=== PATIENT | female | born 1960 | race Caucasian/White ===

== ENCOUNTER 2016-03-10 02:06 | Observation (INO) | payer SELFPAY ==
[2016-03-10] VITALS (11 sets, daily range): BP systolic 99–158; BP diastolic 54–82; PULSE 67–79; RESP 16–20; TEMP 96.8–98; O2SAT 92–100
[~2016-03-10] VITALS: Ht 167.6 cm; Wt 70.0 kg
[2016-03-10] MEDS ORDERED: ASPIRIN 81 MG CHEW TAB PO ONE (02:45)
[2016-03-10] MEDS ORDERED: SODIUM CHLORIDE 0.9% FLUSH 5 ML FLUSH IVF PRN (02:45)
--- NOTE | 2016-03-10 02:47 | PD ---
HPI Chief Complaint: Chest Pain Time Seen by Provider: 02:35 Travel History International Travel<30 days: No Contact w/Intl Traveler<30days: No Traveled to known affect area: No History of Present Illness HPI 55-year-old female with history of CAD, one cardiac stent placed 2 months ago, one pack per day smoker, brought in by ambulance after having a syncopal episode at a bar while drinking alcohol and arousing with chest pain. Patient describes substernal chest heaviness. Pain is constant, moderate, no modifying factors. No history of DVT or PE. No dyspnea. No cough. The patient does complain of generalized malaise and feeling sick. The patient is from [place] and is here on vacation. She denies daily alcohol use. She denies illicit drug use. PFSH Past Medical History High Cholesterol: Yes Coronary Artery Disease: Yes Diminished Hearing: No Hypertension: Yes Tetanus Vaccination: Unknown Influenza Vaccination: No ?: Not : 1 Para: 1 Social History Alcohol Use: Yes (3 or 4 beers tonight) Tobacco Use: Yes (0.5 ppd) Substance Use: No Allergies-Medications (Allergen,Severity, Reaction): Coded Allergies: Cipro (Verified Allergy, Severe, 03/10/16) "that black box warning with my bones" Reported Meds & Prescriptions Reported Meds & Active Scripts Active Reported Lovastatin 20 Mg Tab 20 Mg PO HS Prozac (Fluoxetine HCl) 20 Mg Cap 20 Mg PO BID Plavix (Clopidogrel Bisulfate) 75 Mg Tab 75 Mg PO DAILY Omeprazole 20 Mg Tab 20 Mg PO DAILY Losartan (Losartan Potassium) 50 Mg Tab 50 Mg PO BID Aspirin 81 Mg Chew 81 Mg CHEW ONCE Review of Systems Except as stated in HPI: all other systems reviewed are Neg Physical Exam Narrative GENERAL: Well-developed, well-nourished, comfortable, no acute distress. SKIN: Warm and dry. HEAD: Atraumatic. Normocephalic. EYES: Pupils equal and round. No scleral icterus. No injection or drainage. ENT: Mucous membranes pink and moist. NECK: Trachea midline. No JVD. CARDIOVASCULAR: Regular rate and rhythm. Distal pulses brisk and equal bilaterally. RESPIRATORY: No accessory muscle use. Clear to auscultation. Breath sounds equal bilaterally. GASTROINTESTINAL: Abdomen soft, non-tender, nondistended. MUSCULOSKELETAL: No obvious deformities. No clubbing. No cyanosis. No edema. NEUROLOGICAL: Awake and alert. No obvious cranial nerve deficits. Motor grossly within normal limits. Normal speech. PSYCHIATRIC: Appropriate mood and affect; insight and judgment normal. Data Data Last Documented VS Vital Signs Date Time Temp Pulse Resp B/P Pulse Ox O2 Delivery O2 Flow Rate FiO2 03/10/16 02:34 96 Nasal Cannula 03/10/16 02:28 97.8 68 16 112/63 Orders Electrocardiogram (03/10/16 02:38) Basic Metabolic Panel (Bmp) (03/10/16 02:38) Ckmb (Isoenzyme) Profile (03/10/16 02:38) Complete Blood Count With Diff (03/10/16 02:38) Magnesium (Mg) (03/10/16 02:38) Prothrombin Time / Inr (Pt) (03/10/16 02:38) Act Partial Throm Time (Ptt) (03/10/16 02:38) Troponin I (03/10/16 02:38) Chest, Single Ap (03/10/16 02:38) Ecg Monitoring (03/10/16 02:38) Iv Access Insert/Monitor (03/10/16 02:38) Oximetry (03/10/16 02:38) Aspirin Chew (Aspirin Chew) (03/10/16 02:45) Sodium Chloride 0.9% Flush (Ns Flush) (03/10/16 02:45) Alcohol (Ethanol) (03/10/16 02:38) Drug Screen, Random Urine (03/10/16 02:38) CKMB (03/10/16 02:45) CKMB% (03/10/16 02:45) Ceftriaxone Inj (Rocephin Inj) (03/10/16 04:15) Azithromycin Inj (Zithromax Inj) (03/10/16 04:15) Labs Laboratory Tests Test 03/10/16 03/10/16 02:45 03:25 White Blood Count 8.6 TH/MM3 Red Blood Count 4.37 MIL/MM3 Hemoglobin 12.7 GM/DL Hematocrit 37.5 % Mean Corpuscular Volume 85.9 FL Mean Corpuscular Hemoglobin 29.1 PG Mean Corpuscular Hemoglobin 33.9 % Concent Red Cell Distribution Width 14.4 % Platelet Count 310 TH/MM3 Mean Platelet Volume 7.7 FL Neutrophils (%) (Auto) 59.5 % Lymphocytes (%) (Auto) 31.6 % Monocytes (%) (Auto) 7.0 % Eosinophils (%) (Auto) 0.4 % Basophils (%) (Auto) 1.5 % Neutrophils # (Auto) 5.1 TH/MM3 Lymphocytes # (Auto) 2.7 TH/MM3 Monocytes # (Auto) 0.6 TH/MM3 Eosinophils # (Auto) 0.0 TH/MM3 Basophils # (Auto) 0.1 TH/MM3 CBC Comment DIFF FINAL Differential Comment Prothrombin Time 10.2 SEC Prothromb Time International 0.9 RATIO Ratio Activated Partial 26.1 SEC Thromboplast Time Sodium Level 144 MEQ/L Potassium Level 4.1 MEQ/L Chloride Level 107 MEQ/L Carbon Dioxide Level 29.5 MEQ/L Anion Gap 8 MEQ/L Blood Urea Nitrogen 12 MG/DL Creatinine 0.74 MG/DL Estimat Glomerular Filtration 82 ML/MIN Rate Random Glucose 97 MG/DL Calcium Level 8.7 MG/DL Magnesium Level 2.5 MG/DL Total Creatine Kinase 293 U/L Creatine Kinase MB 2.3 NG/ML Creatine Kinase MB % 0.8 % Troponin I LESS THAN 0.02 NG/ML Ethyl Alcohol Level 243 MG/DL Urine Opiates Screen NEG Urine Barbiturates Screen NEG Urine Amphetamines Screen NEG Urine Benzodiazepines Screen NEG Urine Cocaine Screen NEG Urine Cannabinoids Screen NEG MDM Medical Decision Making Medical Screen Exam Complete: Yes Emergency Medical Condition: Yes Interpretation(s) EKG: Sinus, rate 68, normal axis, normal intervals, no acute ischemic normality. Differential Diagnosis ACS, pneumothorax, pericarditis, PE, pneumonia, alcohol intoxication Narrative Course Initial vital signs show heart rate 68, blood pressure 112/63, pulse ox 92% on room air, oral temp of 97.8F. CBC is unremarkable. BMP is unremarkable. Cardiac enzymes are negative. Urine drug screen is negative for all drugs tested. Alcohol level is 243. Chest x-ray shows focal right perihilar infiltrate. Recommend follow-up films. Patient complaining of significant substernal chest pressure upon arrival to the emergency department with question possible syncopal episode versus alcohol intoxication. Given significant history of cardiac stent placed 2 months ago as well as findings on chest x-ray for which she was given Rocephin and azithromycin, the patient will be admitted for overnight observation for further cardiac evaluation. Case discussed with hospitalist Dr. Do who will admit the patient to her service. Diagnosis Primary Impression: Chest pain Qualified Code: R07.9 - Chest pain, unspecified type Additional Impressions: Pneumonia Qualified Code: J18.9 - Pneumonia of right lung due to infectious organism, unspecified part of lung Syncope Qualified Code: R55 - Syncope, unspecified syncope type Alcohol intoxication Qualified Code: F10.120 - Alcohol intoxication, uncomplicated Admitting Information Admitting Physician Requests: Carson Martin MD Mar 10, 2016 02:47
[2016-03-10 02:56] LABS: AUTOMATED NEUTROPHIL # 5.1 TH/MM3 (1.8-7.7); BASOPHIL # 0.1 TH/MM3 (0-0.2); BASOPHIL % 1.5 % (0.0-2.0); EOSINOPHIL % 0.4 % (0.0-4.0); HEMATOCRIT 37.5 % (35.0-46.0); HEMO FLAGS DIFF FINAL; LYMPH % 31.6 % (9.0-44.0); LYMPHOCYTE # 2.7 TH/MM3 (1.0-4.8); MEAN CELL VOLUME 85.9 FL (80.0-100.0); MEAN CORPUSCULAR HEMOGLOBIN 29.1 PG (27.0-34.0); MEAN CORPUSCULAR HGB CONC 33.9 % (32.0-36.0); NEUT % 59.5 % (16.0-70.0); PLATELET COUNT 310 TH/MM3 (150-450); RED BLOOD COUNT 4.37 MIL/MM3 (4.00-5.30); RED CELL DISTRIBUTION WIDTH 14.4 % (11.6-17.2); WHITE BLOOD COUNT 8.6 TH/MM3 (4.0-11.0)
[2016-03-10] MEDS ORDERED: ASPI81CH CHEW (02:59)
[2016-03-10] MEDS ORDERED: LOSA50TA PO ×2 (02:59→03:01)
[2016-03-10] MEDS ORDERED: OMEP20TA PO (03:01)
[2016-03-10] MEDS ORDERED: PLAV75TA29 PO (03:01)
[2016-03-10] MEDS ORDERED: PROZ20CA11 PO (03:01)
[2016-03-10] MEDS ORDERED: LOVA20TA PO (03:01)
[2016-03-10 03:11] LABS: APTT (PATIENT) 26.1 SEC (24.3-30.1); INTERNATIONAL NORMALIZED RATIO 0.9 RATIO; PROTHROMBIN TIME - PATIENT 10.2 SEC (9.8-11.6)
--- NOTE | 2016-03-10 03:12 | RADRPT ---
EXAM DATE/TIME: 03/10/2016 02:53 [facility] COMPARISON: No previous studies available for comparison. INDICATIONS : Pt passed out tonight, woke with CP. MEDICAL HISTORY : Hypertension. Hypercholesterolemia. Cardiovascular disease. Coronary artery disease SURGICAL HISTORY : None. ENCOUNTER: Initial ACUITY: 1 day PAIN SCORE: 7/10 LOCATION: Bilateral chest FINDINGS: Frontal view of the chest demonstrates an ill-defined opacity in the right perihilar region possibly representing a focal infiltrate. The left lung is clear. Both hemidiaphragms are well delineated. The heart is normal for an AP film. CONCLUSION: Focal right perihilar infiltrate. Recommend followup films. Dann Donis MD on March 10, 2016 at 3:08 Board Certified Radiologist. This report was verified electronically.
[2016-03-10 03:35] LABS: CREATINE KINASE 293 U/L (26-192)
[2016-03-10 03:47] LABS: CKMB 2.3 NG/ML (0.5-3.6)
[2016-03-10 03:50] LABS: AMPHETAMINE, URINE NEG (NEG); BARBITURATES, URINE NEG (NEG); COCAINE, URINE NEG (NEG)
[2016-03-10 04:05] LABS: ANION GAP 8 MEQ/L (5-15); BICARBONATE 29.5 MEQ/L (21.0-32.0); BLOOD UREA NITROGEN 12 MG/DL (7-18); CHLORIDE 107 MEQ/L (98-107); GLOMERULAR FILTRATION RATE 82 ML/MIN (>89); MAGNESIUM 2.5 MG/DL (1.5-2.5); SODIUM (NA) 144 MEQ/L (136-145)
[2016-03-10 04:06] LABS: POTASSIUM 4.1 MEQ/L (3.5-5.1)
[2016-03-10] MEDS ORDERED: cefTRIAXone INJ 1,000 MG in SODIUM CHLORIDE 0.9% INJ 100 ML IV ONE (04:15)
[2016-03-10] MEDS ORDERED: AZITHROMYCIN INJ 500 MG in SODIUM CHLOR 0.9% 250 ML INJ 250 ML IV ONE (04:15)
[2016-03-10] MEDS ORDERED: RESP: ALBUTEROL 2.5 MG/IPRATROPIUM 0.5 MG NEB (PRN) NEB (04:30)
[2016-03-10] MEDS ORDERED: BISACODYL 10 MG SUPP PR PRN (04:30)
[2016-03-10] MEDS ORDERED: SODIUM CHLORIDE 0.9% FLUSH 5 ML FLUSH FLUSH PRN (04:30)
[2016-03-10] MEDS ORDERED: ONDANSETRON HCL 4 MG/2 ML VIAL IVP PRN (04:30)
[2016-03-10] MEDS ORDERED: ASPIRIN 81 MG CHEW TAB CHEW SCH (04:30)
[2016-03-10] MEDS ORDERED: ACETAMINOPHEN 325 MG TAB PO PRN (04:30)
--- NOTE | 2016-03-10 04:44 | HHI.HP ---
[facility] Primary [facility]ician No Primary Care Physician Admission Diagnosis chest pain, alcohol intoxication, syncope Diagnoses: (1) Syncope Diagnosis: Principal (2) Chest pain Diagnosis: Principal (3) PNA (pneumonia) Diagnosis: Principal (4) Alcohol intoxication Diagnosis: Principal (5) Tobacco abuse Diagnosis: Principal Travel History International Travel<30 Days: No Contact w/Intl Traveler <30 Da: No Traveled to Known Affected Are: No History of Present Illness This is a 55-year-old female with a PMH of HTN, CAD s/p Stent and Tobacco Abuse who was brought to the ER by EMS after apparent syncopal episode. Pt visiting from [place], was out drinking at a bar and had syncopal episode, no reported seizure activity. Pt then complained of substernal chest pain. On arrival, BP 112/63, HR 60, O2 sat 92% on RA, Afebrile. CBC unremarkable. Troponin negative. CPK 293. Urine Drug Screen negative. Alcohol 243. CXR with right perihilar infiltrate. S/p Rocephin/Zithro in ER. Currently chest pain free. Review of Systems Other ROS: 14 point review of systems otherwise negative. Past Family Social History Past Medical History PMH: HTN, CAD s/p Stent and Tobacco Abuse Past Surgical History PAST SURGICAL HISTORY: Neck Surgery, Cardiac Stent Allergies: Coded Allergies: Cipro (Verified Allergy, Severe, 03/10/16) "that black box warning with my bones" Family History PAST FAMILY HISTORY: Reviewed. No h/o DM or CAD Social History PAST SOCIAL HISTORY: Occasional alcohol, had 4-5 beers tonight. Smokes 1/ 2ppd. Negative for drugs. Physical Exam Vital Signs Vital Signs Date Time Temp Pulse Resp B/P Pulse Ox O2 Delivery O2 Flow Rate FiO2 03/10/16 02:34 96 Nasal Cannula 03/10/16 02:28 97.8 68 16 112/63 92 Physical Exam PE: GENERAL: Pleasant middle-aged white female in no acute distress, intoxicated. HEENT: PERRLA, EOMI. No scleral icterus or conjunctival pallor. No lid lag or facial droop. CARDIOVASCULAR: Regular rate and rhythm. No obvious murmurs to auscultation. No chest tenderness to palpation. RESPIRATORY: No obvious rhonchi or wheezing. Clear to auscultation. Breath sounds equal bilaterally. GASTROINTESTINAL: Abdomen soft, non-tender, nondistended. BS normal. MUSCULOSKELETAL: Extremities without clubbing, cyanosis, or edema. No obvious deformities. NEUROLOGICAL: Awake, alert and oriented x4. No focal neurologic deficits. Moving both upper and lower extremities spontaneously. Laboratory Laboratory Tests Test 03/10/16 03/10/16 02:45 03:25 White Blood Count 8.6 Red Blood Count 4.37 Hemoglobin 12.7 Hematocrit 37.5 Mean Corpuscular Volume 85.9 Mean Corpuscular Hemoglobin 29.1 Mean Corpuscular Hemoglobin 33.9 Concent Red Cell Distribution Width 14.4 Platelet Count 310 Mean Platelet Volume 7.7 Neutrophils (%) (Auto) 59.5 Lymphocytes (%) (Auto) 31.6 Monocytes (%) (Auto) 7.0 Eosinophils (%) (Auto) 0.4 Basophils (%) (Auto) 1.5 Neutrophils # (Auto) 5.1 Lymphocytes # (Auto) 2.7 Monocytes # (Auto) 0.6 Eosinophils # (Auto) 0.0 Basophils # (Auto) 0.1 CBC Comment DIFF FINAL Differential Comment Prothrombin Time 10.2 Prothromb Time International 0.9 Ratio Activated Partial 26.1 Thromboplast Time Sodium Level 144 Potassium Level 4.1 Chloride Level 107 Carbon Dioxide Level 29.5 Anion Gap 8 Blood Urea Nitrogen 12 Creatinine 0.74 Estimat Glomerular Filtration 82 Rate Random Glucose 97 Calcium Level 8.7 Magnesium Level 2.5 Total Creatine Kinase 293 Creatine Kinase MB 2.3 Creatine Kinase MB % 0.8 Troponin I LESS THAN 0.02 Ethyl Alcohol Level 243 Urine Opiates Screen NEG Urine Barbiturates Screen NEG Urine Amphetamines Screen NEG Urine Benzodiazepines Screen NEG Urine Cocaine Screen NEG Urine Cannabinoids Screen NEG Result Diagram: 03/10/1624403/10/16244 Assessment and Plan Problem List: (1) Syncope ICD Code: R55 Status: Acute (2) Chest pain ICD Code: R07.9 Status: Acute (3) PNA (pneumonia) ICD Code: J18.9 Status: Acute (4) Alcohol intoxication ICD Code: F10.129 Status: Acute (5) Tobacco abuse ICD Code: Z72.0 Status: Acute Assessment and Plan A/P: 1. Syncope: acute syncopal event while at bar, no seizure activity reported, likely vasovagal. Admit for Observation, place on telemetry, check Echo. CPK 293. IVF for hydration. 2. Chest Pain: h/o CAD s/p stent 2 months ago, compliant w/ medications. R/o ACS, trop negative, EKG w/ no acute changes. Check serial enzymes, resume home Statin, ASA/Plavix. Borderline BP, will hold Cozaar, no B-Agustin. 3. PNA: CXR w/ right perihilar infiltrate, images reviewed by me. Afebrile, no leukocytosis, however reports generalized malaise. S/p Rocephin/Zithro in ER , will continue w/ IV Abx. DuoNeb prn. 4. Tobacco Abuse: Ativan prn if needed. No NicoDerm to avoid vasoconstriction. 5. Alcohol Intoxication: Drank 4-5 beers this evening, not a regular drinker. IVF, Ativan prn. 6. DVT Prophylaxis: SCD/Teds. 7. Social work for d/c planning as needed. 8. Case discussed w/ ER physician at length Problem Qualifiers (1) Syncope: Qualified Code: R55 - Syncope, unspecified syncope type (2) Chest pain: Qualified Code: R07.9 - Chest pain, unspecified type (3) Alcohol intoxication: Qualified Code: F10.120 - Alcohol intoxication, uncomplicated Juliane Do MD Mar 10, 2016 04:44
[2016-03-10] MEDS: SODIUM CHLOR 0.9% 1000 ML INJ 1,000 ML IV SCH ×2 (05:31→14:24)
--- NOTE | 2016-03-10 08:55 | HHI.PR ---
Subjective Remarks Follow-up for chest pain, shortness breath, syncope. Patient seen with SO at bedside. The patient states that she's been having worsening shortness of breath all week. Shortness of breath is worsening or she exerts herself, and is relieved with rest. She has associated dry cough, no fever or chills. She was out last night drinking and having fun, and while she was walking she have syncopal episode and landed on her knee. She states that for the past several weeks she's been having sternal chest discomfort intermittently, lasting approximately 1 minute and being relieved by rest. She states the pain similar to previous MA, CHF and a hiatal hernia and she thought was related to that. She did recently drive down with a friend from [place] for vacation. She states her friend several visits, so she had stopped several times along the way. No history of clotting, no lower extremity swelling. She denies any dizziness or vomiting. Previous hospitalization in September and [place] with LAD stent placement. Currently she feels well at this time. Objective Vitals Vital Signs Date Time Temp Pulse Resp B/P Pulse Ox O2 Delivery O2 Flow Rate FiO2 03/10/16 06:30 68 03/10/16 06:01 96.8 72 20 116/78 98 03/10/16 05:41 70 18 128/63 94 Nasal Cannula 2 03/10/16 04:30 72 18 99/54 100 Nasal Cannula 2 03/10/16 03:30 70 18 101/59 96 Nasal Cannula 2 03/10/16 02:34 96 Nasal Cannula 03/10/16 02:28 97.8 68 16 112/63 92 Result Diagram: 03/10/16 0245 03/10/16 0245 Imaging Last Impressions Chest X-Ray 03/10/16 0238 Signed Impressions: Service Date/Time: Thursday, March 10, 2016 02:53 - CONCLUSION: Focal right perihilar infiltrate. Recommend followup films. Dann Donis MD Objective Remarks GENERAL: Well-developed well-nourished. In no acute distress. SKIN: Warm and dry. Left knee abrasion. HEENT: Normocephalic. Pupils equal and round. Mucous membranes pink and moist. CARDIOVASCULAR: Regular rate and rhythm. No murmur appreciated. RESPIRATORY: No accessory muscle use. Clear to auscultation. Breath sounds equal bilaterally. GASTROINTESTINAL: Abdomen soft, non-tender, nondistended. Bowel sounds x4. MUSCULOSKELETAL: No obvious deformities. No clubbing or cyanosis. No edema. NEUROLOGICAL: Awake and alert. No focal neurological deficits. Moves upper and lower extremities spontaneously. Normal speech. PSYCHIATRIC: Appropriate mood and affect; insight and judgment normal. A/P Problem List: (1) Syncope ICD Code: R55 Status: Acute (2) Chest pain ICD Code: R07.9 Status: Acute (3) PNA (pneumonia) ICD Code: J18.9 Status: Acute (4) Alcohol intoxication ICD Code: F10.129 Status: Acute (5) Tobacco abuse ICD Code: Z72.0 Status: Acute Assessment and Plan 55-year-old female with a PMH of HTN, CAD s/p Stent and Tobacco Abuse who presented for chest pain, shortness of breath, and syncopal episode Syncope: Acute syncopal episode after drinking while walking. Vasovagal vs orthostatic vs 2/2 ETOH vs underlying cardiopulmonary etiology as below. Echo ordered. Check orthostatics. CPK 293. IVF for hydration. Neuro checks. Fall precautions. Telemetry monitoring. Chest Pain with history of CAD: Stent placed in [place] in September. R/o ACS. Initial trop negative. EKG reviewed with NSR, no acute changes. Check serial enzymes. Check d-dimer, pulmonary angiogram if needed. Continue home Statin, ASA/Plavix. Borderline BP, holding Cozaar, no B-Agustin for now. Currently chest pain-free. Obtain records from recent hospitalization/cath. PNA: CXR w/ right perihilar infiltrate, reviewed. Progressive shortness of breath and dry cough. Afebrile, no leukocytosis. Continue with IV Rocephin and azithromycin, transition to oral at discharge. DuoNebs and O2 prn. Check urinary antigens and sputum culture. Tobacco Abuse: Patient counseling. Alcohol Intoxication: Drank 4-5 beers prior to admission, ETOH level 243. Not a regular drinker. Monitor. Ativan if needed. DVT Prophylaxis: SCD/Teds. Written by Alfredo Garcia, acting as scribe for Dr. Parra on 03/10/16 at 08:55. The documentation accurately reflects the work performed [id number] by me on at [id number] Discharge Planning Disposition pending clinical course Problem Qualifiers (1) Syncope: Qualified Code: R55 - Syncope, unspecified syncope type (2) Chest pain: Qualified Code: R07.9 - Chest pain, unspecified type (3) Alcohol intoxication: Qualified Code: F10.120 - Alcohol intoxication, uncomplicated Alfredo Garcia Mar 10, 2016 08:55 Sudhir Parra MD Mar 10, 2016 15:08
[2016-03-10] MEDS ORDERED: LOSARTAN 50 MG TAB PO SCH (09:00)
[2016-03-10] MEDS: ASPIRIN 81 MG CHEW TAB CHEW SCH (09:33)
[2016-03-10] MEDS: SODIUM CHLORIDE 0.9% FLUSH 5 ML FLUSH FLUSH SCH ×2 (09:33→20:57)
[2016-03-10] MEDS: CLOPIDOGREL 75 MG TAB PO SCH (09:33)
[2016-03-10] MEDS: FLUoxetine HCL 20 MG CAP PO SCH ×2 (09:33→20:57)
[2016-03-10] MEDS: PANTOPRAZOLE SOD 20 MG DELAYED RELEASE TAB PO SCH (09:33)
[2016-03-10 10:50] LABS: CREATINE KINASE 235 U/L (26-192)
[2016-03-10 11:03] LABS: CKMB 2.2 NG/ML (0.5-3.6)
[2016-03-10] MEDS: ACETAMINOPHEN/HYDROcodone 325 MG/5 MG TAB PO PRN ×2 (13:31→20:57)
[2016-03-10 16:45] LABS: CREATINE KINASE 202 U/L (26-192)
[2016-03-10 16:57] LABS: CKMB 1.4 NG/ML (0.5-3.6)
[2016-03-10] MEDS: MORPHINE SULFATE 4 MG/ML INJ IV PRN (18:10)
[2016-03-10] MEDS: PRAVASTATIN SOD 20 MG TAB PO SCH (20:57)
--- NOTE | 2016-03-10 23:27 | EKG ---
Date Performed: 03/10/2016 Time Performed: 02:20:22 PTAGE: 55 years EKG: Sinus rhythm NORMAL ECG NO PREVIOUS TRACING DOCTOR: Ramana Buck Interpretating Date/Time 03/10/2016 23:26:48
[2016-03-11] VITALS (9 sets, daily range): BP systolic 130–150; BP diastolic 69–84; PULSE 59–65; RESP 18–20; TEMP 96.1–98.1; O2SAT 95–99
[2016-03-11] MEDS: MORPHINE SULFATE 4 MG/ML INJ IV PRN ×5 (00:08→20:35)
[2016-03-11] MEDS: SODIUM CHLOR 0.9% 1000 ML INJ 1,000 ML IV SCH ×3 (00:09→20:34)
[2016-03-11] MEDS: AZITHROMYCIN INJ 500 MG in SODIUM CHLOR 0.9% 250 ML INJ 250 ML IV SCH (05:26)
[2016-03-11 06:08] LABS: AUTOMATED NEUTROPHIL # 4.2 TH/MM3 (1.8-7.7); BASOPHIL # 0.1 TH/MM3 (0-0.2); BASOPHIL % 0.9 % (0.0-2.0); EOSINOPHIL # 0.1 TH/MM3 (0-0.4); EOSINOPHIL % 1.7 % (0.0-4.0); HEMO FLAGS DIFF FINAL; LYMPH % 35.9 % (9.0-44.0); MEAN CELL VOLUME 85.6 FL (80.0-100.0); MEAN CORPUSCULAR HEMOGLOBIN 29.2 PG (27.0-34.0); MEAN CORPUSCULAR HGB CONC 34.1 % (32.0-36.0); MONO % 12.2 % (0.0-8.0); NEUT % 49.3 % (16.0-70.0); PLATELET COUNT 256 TH/MM3 (150-450); RED BLOOD COUNT 3.97 MIL/MM3 (4.00-5.30); RED CELL DISTRIBUTION WIDTH 14.5 % (11.6-17.2); WHITE BLOOD COUNT 8.5 TH/MM3 (4.0-11.0)
[2016-03-11 06:27] LABS: ALT (GPT) 26 U/L (10-53); ANION GAP 6 MEQ/L (5-15); AST (GOT) 16 U/L (15-37); BICARBONATE 26.2 MEQ/L (21.0-32.0); BLOOD UREA NITROGEN 8 MG/DL (7-18); CHLORIDE 111 MEQ/L (98-107); GLOMERULAR FILTRATION RATE 105 ML/MIN (>89); POTASSIUM 3.5 MEQ/L (3.5-5.1); SODIUM (NA) 143 MEQ/L (136-145)
[2016-03-11] MEDS: cefTRIAXone INJ 1,000 MG in SODIUM CHLORIDE 0.9% INJ 100 ML IV SCH (06:27)
[2016-03-11 06:29] LABS: ALKALINE PHOSPHATASE 99 U/L (45-117); TOTAL BILIRUBIN ADULT 0.3 MG/DL (0.2-1.0)
[2016-03-11] MEDS: SODIUM CHLORIDE 0.9% FLUSH 5 ML FLUSH FLUSH SCH ×2 (08:58→20:35)
[2016-03-11] MEDS: ASPIRIN 81 MG CHEW TAB CHEW SCH (08:58)
[2016-03-11] MEDS: FLUoxetine HCL 20 MG CAP PO SCH ×2 (08:58→20:35)
[2016-03-11] MEDS: CLOPIDOGREL 75 MG TAB PO SCH (08:58)
[2016-03-11] MEDS: PANTOPRAZOLE SOD 20 MG DELAYED RELEASE TAB PO SCH (08:58)
--- NOTE | 2016-03-11 10:19 | HHI.PR ---
Subjective Remarks Follow-up for chest pain. The patient states that she had short episodes episode of chest heaviness and shortness of breath last night and today she complains of headache and neck pain. She has chronic neck pain with previous cervical fusions, but states it is slightly worse today. She doesn't believe she had any head or neck trauma with her syncope/fall. Objective Vitals Vital Signs Date Time Temp Pulse Resp B/P Pulse Ox O2 Delivery O2 Flow Rate FiO2 03/11/16 08:37 96.2 64 18 143/84 99 03/11/16 04:21 96.9 64 20 144/72 95 03/11/16 01:42 97.8 63 20 130/69 95 03/11/16 00:20 22 03/10/16 22:00 20 03/10/16 20:04 98.0 68 20 122/69 97 03/10/16 19:44 67 03/10/16 16:44 73 03/10/16 15:43 97.9 74 17 141/76 97 03/10/16 11:20 96.9 79 20 126/72 96 158/56 150/82 I/O 03/10/16 03/10/16 03/10/16 03/11/16 03/11/16 03/11/16 07:00 15:00 23:00 07:00 15:00 23:00 Intake Total 2294 ml Balance 2294 ml Intake Oral 480 ml IV Total 1814 ml Result Diagram: 03/11/16 0529 03/11/16 0529 Imaging Last Impressions Head CT 03/11/16 0000 Signed Impressions: Service Date/Time: Friday, March 11, 2016 10:28 - CONCLUSION: Normal examination. Yasir Leon MD Cervical Spine CT 03/11/16 0000 Signed Impressions: Service Date/Time: Friday, March 11, 2016 10:28 - CONCLUSION: No acute bony injury. Prior remote fusion C4 through 6 with degenerative changes of the C6-7 disc space Yasir Leon MD Chest X-Ray 03/10/16 0238 Signed Impressions: Service Date/Time: Thursday, March 10, 2016 02:53 - CONCLUSION: Focal right perihilar infiltrate. Recommend followup films. Dann Donis MD Objective Remarks GENERAL: Well-developed well-nourished. In no acute distress. SKIN: Warm and dry. Left knee abrasion. HEENT: Normocephalic. Pupils equal and round. Mucous membranes pink and moist. Mild cervical TTP. CARDIOVASCULAR: Regular rate and rhythm. No murmur appreciated. RESPIRATORY: No accessory muscle use. Clear to auscultation. Breath sounds equal bilaterally. GASTROINTESTINAL: Abdomen soft, non-tender, nondistended. Bowel sounds x4. MUSCULOSKELETAL: No obvious deformities. No clubbing or cyanosis. No edema. NEUROLOGICAL: Awake and alert. No focal neurological deficits. Moves upper and lower extremities spontaneously. Normal speech. PSYCHIATRIC: Appropriate mood and affect; insight and judgment normal. A/P Problem List: (1) Syncope ICD Code: R55 Status: Acute (2) Chest pain ICD Code: R07.9 Status: Acute (3) PNA (pneumonia) ICD Code: J18.9 Status: Acute (4) Alcohol intoxication ICD Code: F10.129 Status: Acute (5) Tobacco abuse ICD Code: Z72.0 Status: Acute Assessment and Plan 55-year-old female with a PMH of HTN, CAD s/p Stent and Tobacco Abuse who presented for chest pain, shortness of breath, and syncopal episode Syncope: Acute syncopal episode after drinking while walking. Denies any acute injury. Possibly Vasovagal vs 2/2 ETOH vs underlying cardiopulmonary etiology as below. Echo ordered. Non-orthostatic. IVF for hydration. Neuro checks. Fall precautions. Telemetry monitoring. Chest Pain with history of CAD: Stent placed in [place] in September. ACS ruled out per protocol. Serial trop negative. EKG reviewed with NSR, no acute changes. D-dimer within normal limits. Possibly secondary to pneumonia as below. Continue home Statin, ASA/Plavix. Borderline BP, holding Cozaar, no B- Agustin for now. Currently chest pain-free. Obtain records from recent hospitalization/cath. PNA: CXR w/ right perihilar infiltrate. Progressive shortness of breath and dry cough. Afebrile, no leukocytosis. Urine antigens negative. Sputum culture pending. Continue with IV Rocephin and azithromycin, transition to oral at discharge. DuoNebs and O2 prn. Tobacco Abuse: Patient counseling. Alcohol Intoxication: Drank 4-5 beers prior to admission, ETOH level 243. Not a regular drinker. Monitor. Ativan if needed. Headache/neck pain: Acute on chronic. Ordered head and C-spine CT. Head CT with no acute changes. Cervical CT with hardware in place, no acute changes. Continue oral and IV pain control as needed. Start scheduled Flexeril. Heating pad as needed. DVT Prophylaxis: SCD/Teds. Written by Alfredo Garcia, acting as scribe for Dr. Parra on 03/11/16 at 10:18. The documentation accurately reflects the work performed [id number] by me on at [id number] Discharge Planning Disposition pending clinical course Problem Qualifiers (1) Syncope: Qualified Code: R55 - Syncope, unspecified syncope type (2) Chest pain: Qualified Code: R07.9 - Chest pain, unspecified type (3) Alcohol intoxication: Qualified Code: F10.120 - Alcohol intoxication, uncomplicated Alfredo Garcia Mar 11, 2016 10:19 Sudhir Parra MD Mar 11, 2016 16:25
--- NOTE | 2016-03-11 10:44 | RADRPT ---
EXAM DATE/TIME: 03/11/2016 10:28 [facility] COMPARISON: No previous studies available for comparison. INDICATIONS : Cephalgia after syncopal episode two days ago. RADIATION DOSE: 56.36 CTDIvol (mGy) MEDICAL HISTORY : Hypertension. SURGICAL HISTORY : Cervical fusion. ENCOUNTER: Initial ACUITY: 2 days PAIN SCALE: 5/10 LOCATION: Bilateral cranial TECHNIQUE: Multiple contiguous axial images were obtained of the head. Using automated exposure control and adj ustment of the mA and/or kV according to patient size, radiation dose was kept as low as reasonably a chievable to obtain optimal diagnostic quality images. FINDINGS: CEREBRUM: The ventricles are normal for age. No evidence of midline shift, mass lesion, hemorrhage or acute in farction. No extra-axial fluid collections are seen. POSTERIOR FOSSA: The cerebellum and brainstem are intact. The 4th ventricle is midline. The cerebellopontine angle i s unremarkable. EXTRACRANIAL: The visualized portion of the orbits is intact. SKULL: The calvaria is intact. No evidence of skull fracture. CONCLUSION: Normal examination. Yasir Leon MD on March 11, 2016 at 10:42 Board Certified Radiologist. This report was verified electronically.
--- NOTE | 2016-03-11 10:52 | RADRPT ---
EXAM DATE/TIME: 03/11/2016 10:28 [place] COMPARISON: No previous studies available for comparison. INDICATIONS : Cephalgia after syncopal episode two days ago. RADIATION DOSE: 32.03 CTDIvol (mGy) MEDICAL HISTORY : Hypertension. SURGICAL HISTORY : Cervical fusion. ENCOUNTER: Initial ACUITY: 1 day PAIN SCALE: 5/10 LOCATION: Bilateral neck TECHNIQUE: Volumetric scanning of the cervical spine was performed. Multiplanar reconstructions in the sagittal, coronal and oblique axial planes were performed. Using automated exposure control and adjustment o f the mA and/or kV according to patient size, radiation dose was kept as low as reasonably achievable to obtain optimal diagnostic quality images. FINDINGS: He bony structures are intact nose fracture, depression, subluxation, or destructive change. Odontoid is a normal relationship to the arch of C1. There is localized degenerative disc disease C6-7 uncove rtebral hypertrophy more prominent on the right than the left with neural foraminal encroachment. Rem ote anterior cervical fusion at C4, C5, and C6 is appreciated with intervertebral disc graft united. CONCLUSION: No acute bony injury. Prior remote fusion C4 through 6 with degenerative c hanges of the C6-7 disc space Yasir Leon MD on March 11, 2016 at 10:48 Board Certified Radiologist. This report was verified electronically.
[2016-03-11] MEDS: CYCLOBENZAPRINE HCL 10 MG TAB PO SCH ×3 (10:55→20:35)
[2016-03-11] MEDS ORDERED: HYDR-3516 PO (16:23)
[2016-03-11] MEDS: LACTOBACILLUS ACIDOPHILUS TAB PO SCH ×2 (17:50→20:35)
[2016-03-11] MEDS: PRAVASTATIN SOD 20 MG TAB PO SCH (20:34)
--- NOTE | 2016-03-11 21:01 | EC ---
Study Study Date:03/11/2016 STUDY CONCLUSIONS SUMMARY - Left ventricle: The cavity size was normal. Wall thickness was normal. Systolic function was normal. The estimated ejection fraction was 55%. Wall motion was normal; there were no regional wall motion abnormalities. - Mitral valve: Mild to moderate regurgitation. - Pulmonary arteries: PA peak pressure: 32mm Hg (S). If LV function is below 40, please consider prescribing an ACEI or ARB or document rationale for non-use. PROCEDURE DATA STUDY STATUS: Elective. Procedure: Transthoracic echocardiography. Image quality was good. Scanning was performed from the parasternal, apical, and subcostal acoustic windows. Study completion: The patient tolerated the procedure well. Transthoracic echocardiography. M-mode, complete 2D, complete spectral Doppler, and color Doppler. Patient status: Inpatient. CARDIAC ANATOMY LEFT VENTRICLE: The cavity size was normal. Wall thickness was normal. Systolic function was normal. The estimated ejection fraction was 55%. Wall motion was normal; there were no regional wall motion abnormalities. AORTIC VALVE: Trileaflet; normal thickness leaflets. Doppler: Transvalvular velocity was within the normal range. There was no stenosis. No regurgitation. AORTA: Aortic root: The aortic root was normal in size. MITRAL VALVE: Structurally normal valve. Doppler: Transvalvular velocity was within the normal range. There was no evidence for stenosis. Mild to moderate regurgitation. Peak gradient: 4mm Hg (D). LEFT ATRIUM: The atrium was normal in size. RIGHT VENTRICLE: The cavity size was normal. Wall thickness was normal. PULMONIC VALVE: Doppler: Transvalvular velocity was within the normal range. There was no evidence for stenosis. No regurgitation. TRICUSPID VALVE: Structurally normal valve. Doppler: Transvalvular velocity was within the normal range. Trace regurgitation. PULMONARY ARTERY: The main pulmonary artery was normal-sized. Systolic pressure was within the normal range. RIGHT ATRIUM: The atrium was normal in size. PERICARDIUM: There was no pericardial effusion. SYSTEMIC VEINS: Inferior vena cava: The vessel was normal in size. BASIC MEASUREMENTS ADULT NORMAL Left ventricle LV internal dimension, ED, chordal level, 48.4 mm 43-52 PLAX LV internal dimension, ES, chordal level, 36.8 mm 23-38 PLAX Fractional shortening, chordal level, PLAX *24 % >29 LV posterior wall thickness, ED 8.46 mm IVS/LVPW ratio, ED 1.11 <1.3 Ventricular septum Septal thickness, ED 9.36 mm Left atrium Anterior-posterior dimension 40 mm Right ventricle RV internal dimension, ED, PLAX 20.9 mm 19-38 DOPPLER MEASUREMENTS ADULT NORMAL Main pulmonary artery Pressure, S *32 mm Hg =30 Mitral valve Peak E-wave velocity 106 cm/s Peak A-wave velocity 80.9 cm/s Peak gradient, D 4 mm Hg Peak E/A ratio 1.3 Tricuspid valve Regurgitant peak velocity 258 cm/s Peak RV-RA gradient, S 27 mm Hg Maximal regurgitant velocity 258 cm/s Systemic veins Estimated CVP 5 mm Hg Right ventricle RV pressure, S *32 mm Hg <30 LEGEND: Mean values are shown as u=mean value. Asterisk (*) garibay values outside specified normal range. Drew Howard [id number]
[2016-03-12] MEDS: MORPHINE SULFATE 4 MG/ML INJ IV PRN ×2 (01:37→04:45)
[2016-03-12] MEDS: AZITHROMYCIN INJ 500 MG in SODIUM CHLOR 0.9% 250 ML INJ 250 ML IV SCH (04:45)
[2016-03-12 04:53] VITALS: BP 148/74; PULSE 53; RESP 20; TEMP 98; O2SAT 97
[2016-03-12] MEDS: cefTRIAXone INJ 1,000 MG in SODIUM CHLORIDE 0.9% INJ 100 ML IV SCH (05:50)
[2016-03-12] MEDS: CYCLOBENZAPRINE HCL 10 MG TAB PO SCH (05:50)
[2016-03-12] MEDS: SODIUM CHLOR 0.9% 1000 ML INJ 1,000 ML IV SCH (05:50)
[2016-03-12] MEDS ORDERED: NORC5TAB PO (07:52)
[2016-03-12] MEDS ORDERED: CYCL1TAB29 PO (07:53)
[2016-03-12 08:00] VITALS: BP 126/83; PULSE 56; RESP 16; TEMP 97; O2SAT 96
--- NOTE | 2016-03-12 08:05 | HHI.DCPOC ---
Discharge Care Plan Diagnosis: (1) PNA (pneumonia) (2) Chest pain Your Health Problems Are: Chest Pain Cough Shortness of Breath Goals to Promote Your Health * To prevent worsening of your condition and complications * To maintain your health at the optimal level Directions to Meet Your Goals Take your medications as prescribed Follow your dietary instruction Follow activity as directed Keep your appointments as scheduled Take your immunizations and boosters as scheduled If your symptoms worsen call your PCP, if no PCP go to Urgent Care Center or Emergency Room Smoking is Dangerous to Your Health. Avoid second hand smoke Call the 24-hour hour crisis hotline for domestic abuse at Bernie Ribeiro PA-C Mar 12, 2016 08:05 Brianda Woodard MD Mar 12, 2016 23:23
[2016-03-12] MEDS ORDERED: CEFT500T3 PO (08:08)
[2016-03-12] MEDS ORDERED: AZIT500T2 PO (08:08)
[2016-03-12] MEDS: ASPIRIN 81 MG CHEW TAB CHEW SCH (08:09)
[2016-03-12] MEDS: PANTOPRAZOLE SOD 20 MG DELAYED RELEASE TAB PO SCH (08:09)
[2016-03-12] MEDS: FLUoxetine HCL 20 MG CAP PO SCH (08:09)
[2016-03-12] MEDS: LACTOBACILLUS ACIDOPHILUS TAB PO SCH (08:09)
[2016-03-12] MEDS: CLOPIDOGREL 75 MG TAB PO SCH (08:10)
[2016-03-12] MEDS: ACETAMINOPHEN/HYDROcodone 325 MG/5 MG TAB PO PRN (08:14)
[2016-03-12 08:15] VITALS: PULSE 80
[2016-03-12] MEDS: SODIUM CHLORIDE 0.9% FLUSH 5 ML FLUSH FLUSH SCH (08:15)
--- NOTE | 2016-03-12 08:24 | HHI.DS ---
Discharge Summary Admission Date Mar 10, 2016 at 04:26 Discharge Date: Mar 12, 2016 Admitting Diagnosis chest pain, alcohol intoxication, syncope (1) Syncope ICD Code: R55 Diagnosis: Principal (2) Chest pain ICD Code: R07.9 Diagnosis: Principal (3) PNA (pneumonia) ICD Code: J18.9 Diagnosis: Principal (4) Alcohol intoxication ICD Code: F10.129 Diagnosis: Secondary (5) Tobacco abuse ICD Code: Z72.0 Diagnosis: Secondary Procedures None. Brief History - From Admission This is a 55-year-old female with a PMH of HTN, CAD s/p Stent and Tobacco Abuse who was brought to the ER by EMS after apparent syncopal episode. Pt visiting from [place], was out drinking at a bar and had syncopal episode, no reported seizure activity. Pt then complained of substernal chest pain. On arrival, BP 112/63, HR 60, O2 sat 92% on RA, Afebrile. CBC unremarkable. Troponin negative. CPK 293. Urine Drug Screen negative. Alcohol 243. CXR with right perihilar infiltrate. S/p Rocephin/Zithro in ER. Currently chest pain free. CBC/BMP: 03/11/16 0529 03/11/16 0529 Significant Findings Laboratory Tests Test 03/10/16 03/10/16 03/10/16 03/11/16 02:45 09:45 16:02 05:29 Estimat Glomerular Filtration 82 ML/MIN (>89) Rate Total Creatine Kinase 293 U/L 235 U/L 202 U/L (26-192) (26-192) (26-192) Troponin I LESS THAN 0.02 LESS THAN 0.02 LESS THAN 0.02 NG/ML NG/ML NG/ML (0.02-0.05) (0.02-0.05) (0.02-0.05) Ethyl Alcohol Level 243 MG/DL (0-5) Red Blood Count 3.97 MIL/MM3 (4.00-5.30) Hematocrit 34.0 % (35.0-46.0) Monocytes (%) (Auto) 12.2 % (0.0-8.0) Monocytes # (Auto) 1.0 TH/MM3 (0-0.9) Chloride Level 111 MEQ/L (98-107) Calcium Level 8.0 MG/DL (8.5-10.1) Total Protein 5.6 GM/DL (6.4-8.2) Albumin 2.8 GM/DL (3.4-5.0) PE at Discharge GENERAL: Well-developed well-nourished. In no acute distress. SKIN: Warm and dry. Left knee abrasion. HEENT: Normocephalic. Pupils equal and round. Mucous membranes pink and moist. Mild cervical TTP. CARDIOVASCULAR: Regular rate and rhythm. No murmur appreciated. RESPIRATORY: No accessory muscle use. Clear to auscultation. Breath sounds equal bilaterally. GASTROINTESTINAL: Abdomen soft, non-tender, nondistended. Bowel sounds x4. MUSCULOSKELETAL: No obvious deformities. No clubbing or cyanosis. No edema. NEUROLOGICAL: Awake and alert. No focal neurological deficits. Moves upper and lower extremities spontaneously. Normal speech. PSYCHIATRIC: Appropriate mood and affect; insight and judgment normal. Pt update on day of discharge Follow up for syncope, pneumonia. The patient reports feeling slightly better today. She states she started coughing yesterday and feels as though it is "loosening up." Denies fevers or chills. Still having occasional pain across the anterior lower rib cage, worse with deep breathing and coughing. She feels the muscle relaxers are helping her. She would like to go home today. She plans to travel via vehicle back to [place] but states she will not be driving. Hospital Course 55-year-old female with a PMH of HTN, CAD s/p Stent and Tobacco Abuse who presented for chest pain, shortness of breath, and syncopal episode Syncope: Acute syncopal episode after drinking while walking. Denies any acute injury. Possibly Vasovagal vs 2/2 ETOH vs underlying cardiopulmonary etiology as below. Echocardiogram show normal systolic function, EF 55%, mild to mod MR. Non-orthostatic. IVF for hydration. Neuro checks. Fall precautions. Telemetry monitoring, unremarkable. No further syncopal events. Chest Pain with history of CAD: Suspect secondary to pneumonia as below. Stent placed in [place] in September 2015. ACS ruled out per protocol with negative serial cardiac enzymes and EKG reviewed with NSR, no acute changes. D-dimer wnl. Continue home Statin, ASA/Plavix. Borderline BP, holding Cozaar, no B- Agustin for now. Unable to obtain records from recent hospitalization/cath. PNA: CXR w/ right perihilar infiltrate. Progressive SOB and dry cough. Afebrile, no leukocytosis. Urine antigens negative. Sputum culture with heavy growth normal respiratory radha. Continue with IV Rocephin and azithromycin, transition to Ceftin/azithro po at discharge. DuoNebs and O2 prn. Improving. Tobacco Abuse: Patient counseling. Alcohol Intoxication: Drank 4-5 beers prior to admission, ETOH level 243. Not a regular drinker. Monitor. Ativan if needed. Headache/neck pain: Acute on chronic. Head CT with no acute changes. Cervical CT with hardware in place, no acute changes. Continue oral and IV pain control as needed. Start scheduled Flexeril with some relief. Heating pad as needed. DVT Prophylaxis: SCD/Teds. Pt Condition on Discharge: Stable Discharge Disposition: Discharge Home Discharge Time: > 30 minutes Discharge Instructions DIET: Follow Instructions for: Heart Healthy Diet Activities you can perform: Regular-No Restrictions Follow up Referrals: PCP Follow-up - 1 Week New Medications: Azithromycin (Azithromycin) 500 Mg Tab 500 MG PO DAILY Infection #3 Ref 0 TAB Cefuroxime (Ceftin) 500 Mg Tab 500 MG PO BID Take for 7 days total. Infection #14 Ref 0 TAB Cyclobenzaprine (Flexeril) 10 Mg Tab 10 MG PO BID Muscle Spasm #20 Ref 0 TAB Hydrocodone-Acetaminophen ([place]) 5-325 mg Tab 1 TAB PO Q4H PRN PAIN #20 Ref 0 TAB Continued Medications: Aspirin (Aspirin) 81 Mg Chew 81 MG CHEW ONCE #1 Ref 0 TAB Clopidogrel (Plavix) 75 Mg Tab 75 MG PO DAILY Blood Clot Prevention #30 Ref 0 TAB Fluoxetine (Prozac) 20 Mg Cap 20 MG PO BID #30 Ref 0 CAP Lovastatin (Lovastatin) 20 Mg Tab 20 MG PO HS Cholesterol Management #30 Ref 0 TAB Omeprazole (Omeprazole) 20 Mg Tab 20 MG PO DAILY #30 Ref 0 TAB Additional Information Written by Bernie Ribeiro, acting as scribe for Dr. Woodard on 03/12/16 at 07:40. The documentation accurately reflects the work performed [id number] by me Dr. Woodard on 03/12/16 at 07:40. Bernie Ribeiro PA-C Mar 12, 2016 08:24 Brianda Woodard MD Mar 12, 2016 23:23
== END 2016-03-12 11:24 | disposition home or self-care (01) ==
LOC: NEPC 02:06 → NEDA 04:26 → NEPGCP 05:56
PROVIDERS: ADMIT Hospitalist; ATTEND Hospitalist
DX: R55 Syncope and collapse (principal); R07.9 Chest pain, unspecified; J18.9 Pneumonia, unspecified organism; I10 Essential (primary) hypertension; I25.10 Atherosclerotic heart disease of native coronary artery without angina pectoris; I50.9 Heart failure, unspecified; F10.120 Alcohol abuse with intoxication, uncomplicated; I25.2 Old myocardial infarction; E78.00 Pure hypercholesterolemia, unspecified; G89.29 Other chronic pain; Y90.8 Blood alcohol level of 240 mg/100 ml or more; Z72.0 Tobacco use; Z95.5 Presence of coronary angioplasty implant and graft
CPT/HCPCS: 70450; 71010; 72125; 80048; 80053; 80307; 80320; 82550; 82552; 83735; 84484; 85025; 85379; 85610; 85730; 87070; 87205; 87449; 93005; 93306; 99285; G0378; J0456; J0696; J2270; J7030; J7050